=== PATIENT | male | born 1990 | race African-American/Black ===

== ENCOUNTER 2023-07-07 09:59 | Emergency (ER) | payer SELFPAY ==
[~2023-07-07] VITALS: Ht 180.3 cm; Wt 95.3 kg
[2023-07-07] MEDS: ZIPRASIDONE MESYLATE 20MG/VIAL IM ONE (10:52)
[2023-07-07 12:02] LABS: CLARITY URINE TURBID (CLEAR); COLOR URINE DARK YELLOW (YELLOW); GLUCOSE URINE NEGATIVE (NEGATIVE); KETONES URINE 1+ (NEGATIVE); LEUKOCYTE ESTERASE URINE TRACE (NEGATIVE); NITRITE URINE NEGATIVE (NEGATIVE); OCCULT BLOOD URINE NEGATIVE (NEGATIVE); PROTEIN URINE 1+ (NEGATIVE); SPECIFIC GRAVITY URINE 1.036 (1.005-1.030)
[2023-07-07 12:09] LABS: *AMPHETAMINES SCREEN URINE NEGATIVE (NEGATIVE); *BARBITURATES SCREEN URINE NEGATIVE (NEGATIVE); *BENZODIAZEPINES SCREEN URINE NEGATIVE (NEGATIVE); *COCAINE SCREEN URINE NEGATIVE (NEGATIVE); CANNABINOID URINE SCREEN NEGATIVE (NEGATIVE); ECSTASY MDMA SCREEN URINE NEGATIVE (NEGATIVE); METHADONE URINE SCREEN NEGATIVE (NEGATIVE); OPIATES URINE SCREEN NEGATIVE (NEGATIVE); PHENCYCLIDINE URINE SCREEN NEGATIVE (NEGATIVE)
[2023-07-07 12:19] LABS: BASOPHILS % 0.7 % (0.0-2.0); CHLORIDE 107 mEq/L (98-107); EOSINOPHILS % 0.8 % (0.0-5.0); HEMATOCRIT. 45.2 % (42.0-52.0); HEMOGLOBIN. 15.1 g/dL (14.0-18.0); LYMPHOCYTES % 32.5 % (20.0-50.0); MEAN CORPUSCULAR HGB CONC 33.3 g/dL (31.0-37.0); MEAN CORPUSCULAR VOLUME 86.9 fL (80.0-94.0); MEAN PLATELET VOLUME 9.6 fl (7.4-10.4); MONOCYTES % 10.2 % (2.0-8.0); NEUTROPHILS % 55.8 % (40.0-76.0); PLATELET 185 x1000/uL (130-400); POTASSIUM 3.8 mEq/L (3.5-5.1); RED BLOOD CELL COUNT 5.21 mill/uL (4.7-6.1); RED CELL DISTRIBUTION WIDTH 15.6 % (11.6-14.6); SODIUM 138 mEq/L (136-145); WHITE BLOOD COUNT 5.6 x1000/uL (4.5-11.0)
[2023-07-07 12:20] LABS: CALCIUM 9.3 mg/dL (8.7-10.4); CARBON DIOXIDE 25 mEq/L (21-32)
[2023-07-07 12:24] LABS: HYALINE CASTS URINE 0-5 /lpf
[2023-07-07 12:25] LABS: MUCUS URINE 3+ /lpf (NONE/TRACE); RBC URINE NONE SEEN /hpf (0-2)
[2023-07-07 12:25] LABS: CREATININE 1.1 mg/dL (0.6-1.3); GLUCOSE 81 mg/dL (70-105); UREA NITROGEN BLOOD 6 mg/dL (9-23)
[2023-07-07 12:28] LABS: BACTERIA URINE TRACE; SQUAMOUS EPITHELIAL CELL URINE RARE /lpf (RARE/1+)
[2023-07-07 12:41] LABS: ETHANOL BLOOD < 10 mg/dL (<10)
[2023-07-07 13:18] LABS: ACETAMINOPHEN < 2 ug/mL (10-30)
[2023-07-07 15:24] LABS: INR 1.1; PROTHROMBIN TIME 11.9 sec (9.6-11.0)
[2023-07-08] MEDS: OLANZAPINE 10 MG/VIAL IM ONE ×2 (06:56→16:30)
[2023-07-08] MEDS: LORAZEPAM 2MG/ML INJ IM ONE ×3 (06:56→16:50)
[2023-07-08] MEDS: DIPHENHYDRAMINE 50MG/ML VIAL IM ONE (16:51)
[2023-07-08] MEDS: OLANZAPINE 5MG TABLET ODT PO SCH (18:00)
[2023-07-09] MEDS: OLANZAPINE 10 MG/VIAL IM ONE (16:35)
[2023-07-09] MEDS: DIPHENHYDRAMINE 50MG/ML VIAL IM ONE (16:35)
[2023-07-09] MEDS: LORAZEPAM 2MG/ML INJ IM ONE (16:35)
[2023-07-09 19:20] VITALS: O2SAT 99
[2023-07-10] MEDS: DIPHENHYDRAMINE 50MG/ML VIAL IM STA (13:06)
[2023-07-10] MEDS: LORAZEPAM 2MG/ML INJ IV ONE (13:15)
[2023-07-10] MEDS: LORAZEPAM 1MG TABLET PO ONE (13:15)
[2023-07-10 18:30] VITALS: TEMP 98.4
[2023-07-10 23:57] VITALS: BP 136/77; PULSE 98; RESP 20
== END 2023-07-11 ==
LOC: EDBD 09:59 → ER 09:59
DX: F23 Brief psychotic disorder (principal); R51.9 Headache, unspecified; Z20.822 Contact with and (suspected) exposure to COVID-19
CPT/HCPCS: 80305; 80048; 81003; 80307; 80329; 80320; 82962; 85025; 85610; 36415; 70450; 96372 ×3; 99285; 87426; 96374; J3486; J3490 ×2; J1200 ×3; J2060 ×3; G0480

== ENCOUNTER 2023-07-11 02:16 | Emergency (ER) | payer SELFPAY ==
[~2023-07-11] VITALS: Ht 182.9 cm; Wt 90.0 kg
[2023-07-11] MEDS ORDERED: OLANZAPINE 5MG TABLET ODT PO ONE (03:00)
[2023-07-11] MEDS: LORAZEPAM 1MG TABLET PO ONE (03:00)
[2023-07-11] MEDS: LORAZEPAM 2MG/ML INJ IM ONE (03:15)
[2023-07-11] MEDS ORDERED: LORAZEPAM 1MG TABLET PO NR (03:15)
[2023-07-11] MEDS: OLANZAPINE 10 MG/VIAL IM ONE (03:15)
[2023-07-11] MEDS: OLANZAPINE 5MG TABLET ODT PO NR (03:15)
[2023-07-11] MEDS: DIPHENHYDRAMINE 50MG/ML VIAL IM ONE (03:30)
[2023-07-11] MEDS: MIDAZOLAM HCL 2 MG/2 ML VIAL IM ONE (06:30)
[2023-07-11 11:26] LABS: BASOPHILS % 0.7 % (0.0-2.0); HEMATOCRIT. 46.6 % (42.0-52.0); HEMOGLOBIN. 15.6 g/dL (14.0-18.0); LYMPHOCYTES % 49.4 % (20.0-50.0); MEAN CORPUSCULAR HEMOGLOBIN 29.5 pg (28.0-32.0); MEAN CORPUSCULAR HGB CONC 33.6 g/dL (31.0-37.0); MEAN CORPUSCULAR VOLUME 87.8 fL (80.0-94.0); MEAN PLATELET VOLUME 9.7 fl (7.4-10.4); MONOCYTES % 10.2 % (2.0-8.0); NEUTROPHILS % 34.7 % (40.0-76.0); PLATELET 171 x1000/uL (130-400); RED BLOOD CELL COUNT 5.31 mill/uL (4.7-6.1); RED CELL DISTRIBUTION WIDTH 15.7 % (11.6-14.6); WHITE BLOOD COUNT 6.2 x1000/uL (4.5-11.0)
[2023-07-11 11:31] LABS: CHLORIDE 106 mEq/L (98-107); POTASSIUM 4.2 mEq/L (3.5-5.1); SODIUM 140 mEq/L (136-145)
[2023-07-11 11:32] LABS: CALCIUM 9.2 mg/dL (8.7-10.4); CARBON DIOXIDE 31 mEq/L (21-32)
[2023-07-11 11:37] LABS: CREATININE 1.1 mg/dL (0.6-1.3); GLUCOSE 63 mg/dL (70-105); UREA NITROGEN BLOOD 11 mg/dL (9-23)
[2023-07-11 11:39] LABS: ACETAMINOPHEN < 2 ug/mL (10-30)
[2023-07-11 11:49] LABS: ETHANOL BLOOD < 10 mg/dL (<10)
[2023-07-11 15:00] LABS: CLARITY URINE CLEAR (CLEAR); COLOR URINE YELLOW (YELLOW); GLUCOSE URINE NEGATIVE (NEGATIVE); KETONES URINE NEGATIVE (NEGATIVE); LEUKOCYTE ESTERASE URINE NEGATIVE (NEGATIVE); NITRITE URINE NEGATIVE (NEGATIVE); OCCULT BLOOD URINE NEGATIVE (NEGATIVE); PH URINE 6.5 (4.5-8.0); PROTEIN URINE NEGATIVE (NEGATIVE); SPECIFIC GRAVITY URINE 1.036 (1.005-1.030)
[2023-07-11] MEDS: OLANZAPINE 5MG TABLET ODT PO SCH (15:00)
[2023-07-11 15:15] LABS: *AMPHETAMINES SCREEN URINE NEGATIVE (NEGATIVE); *BARBITURATES SCREEN URINE NEGATIVE (NEGATIVE); *BENZODIAZEPINES SCREEN URINE PRESUMPTIVE POSITIVE (NEGATIVE); *COCAINE SCREEN URINE NEGATIVE (NEGATIVE); CANNABINOID URINE SCREEN NEGATIVE (NEGATIVE); ECSTASY MDMA SCREEN URINE NEGATIVE (NEGATIVE); METHADONE URINE SCREEN NEGATIVE (NEGATIVE); OPIATES URINE SCREEN NEGATIVE (NEGATIVE); PHENCYCLIDINE URINE SCREEN NEGATIVE (NEGATIVE)
[2023-07-11] MEDS: HALOPERIDOL LACTATE 5MG/ML VIAL IM ONE ×2 (22:20→23:35)
[2023-07-11] MEDS: MIDAZOLAM HCL 2 MG/2 ML VIAL IV ONE (22:20)
[2023-07-11] MEDS: DIPHENHYDRAMINE 50MG/ML VIAL IM PRN (22:20)
[2023-07-12] MEDS: HALOPERIDOL LACTATE 5MG/ML VIAL IM ONE (18:19)
[2023-07-12] MEDS: DIPHENHYDRAMINE 50MG/ML VIAL IM ONE (18:19)
[2023-07-12] MEDS: MIDAZOLAM HCL 2 MG/2 ML VIAL IV ONE (18:19)
[2023-07-12] MEDS: MIDAZOLAM HCL 2 MG/2 ML VIAL IM ONE (18:20)
[2023-07-13] MEDS: LORAZEPAM 2MG/ML INJ IM ONE ×2 (13:08→13:48)
[2023-07-13] MEDS: OLANZAPINE 10 MG/VIAL IM ONE (13:09)
[2023-07-13 14:34] VITALS: O2SAT 100
[2023-07-13 20:49] VITALS: BP 126/78; PULSE 84; RESP 18; TEMP 98.1
== END 2023-07-13 21:09 ==
LOC: ER 02:16
DX: R45.1 Restlessness and agitation (principal); Z20.822 Contact with and (suspected) exposure to COVID-19
CPT/HCPCS: 80305; 80048; 81003; 80307; 80329; 80320; 85025; 36415; 99291; 87426; 96372 ×2; 96376; 70450; 70486; J3490 ×2; J1200 ×2; J1630 ×2; J2060 ×2; J2250 ×2; Z7610; G0480